=== PATIENT | male | born 1960 | race Caucasian/White ===

== ENCOUNTER 2016-10-24 01:31 | Emergency (ER) | payer OTHER ==
[~2016-10-24] VITALS: Ht 177.8 cm; Wt 86.2 kg
[2016-10-24 02:53] LABS: BASOPHIL % 0.7 % (0-2); PLATELET COUNT 181 x10^3mcL (130-400)
[2016-10-24 02:54] LABS: RED CELL DISTRIBUTION WIDTH 18.9 % (11.5-14.5)
[2016-10-24 02:56] LABS: CALCIUM 8.1 mg/dL (8.5-10.1); CARBON DIOXIDE 26.3 mmol/L (21-32); CHLORIDE SERUM 108 mmol/L (98-107); CREATININE SERUM 0.7 mg/dL (0.7-1.3); GFR1 > 60 mL/min; GLUCOSE SERUM 111 mg/dL (74-106); POTASSIUM SERUM 3.6 mmol/L (3.5-5.1); SODIUM SERUM 146 mmol/L (136-145)
[2016-10-24 03:01] LABS: ALKALINE PHOSPHATASE 62 U/L (46-116); ALT/SGPT 22 U/L (16-63); AST/SGOT 25 U/L (15-37); BILIRUBIN TOTAL 0.23 mg/dL (0.20-1.00); TOTAL PROTEIN, SERUM 6.6 g/dL (6.4-8.2)
[2016-10-24 03:19] LABS: ALBUMIN 3.1 g/dL (3.4-5.0)
[2016-10-24 04:44] VITALS: BP 97/53
== END 2016-10-24 04:44 | disposition home or self-care (01) ==
LOC: ED 01:31
PROVIDERS: Emergency Medicine
DX: R51 Headache (principal); F10.129 Alcohol abuse with intoxication, unspecified
CPT/HCPCS: 36415; G0480; J1885; Q0092